=== PATIENT | female | born 1955 | race Caucasian/White ===

== ENCOUNTER → 2019-07-06 | Outpatient (CLI) | payer OTHER ==
[~2019-07-06] MED LIST: IBUPROFEN400 MG PO; IMITREX25 MG; PROTONIX40 MG PO; REGLAN10 MG PO
--- NOTE | 2019-07-06 10:08 | Diagnostic Imaging Report ---
CT of the chest, without contrast, 07/06/2019. History: "questionable area by the aorta arch on the left side of the lung" reported on prior exam. Left shoulder pain. Comparison: Chest x-ray 03/30/2015. Technique: Multidetector CT scanning of the chest was performed from the level of the apices to the upper abdomen without contrast. Coronal and sagittal multiplanar reformations were obtained. RADIATION DOSE: Total DLP: 477 mGy*cm Dose modulation, iterative reconstruction, and/or weight based adjustment of the mA/kV was utilized to reduce the radiation dose to as low as reasonably achievable. Discussion: Evaluation is limited without IV contrast. Chest: The heart, aorta, and pulmonary vessels are normal in size. A 2.7 cm oval hypodense lesion is present within the right thyroid lobe. There is no axillary or mediastinal adenopathy. The pleura and lungs are normal in appearance. There is no evidence of consolidation, mass, or pleural effusion. Limited evaluation of the upper abdomen shows normal adrenal glands. Cholecystectomy clips are present. There is diffuse low-density of the liver. Bones and soft tissues: No acute abnormality. Mild degenerative changes are present in the thoracic spine. IMPRESSION: 1. No pulmonary abnormality. Density described on prior chest x-ray is likely secondary to overlying first rib. 2. Right thyroid 2.7 cm nodule. Recommend further evaluation with ultrasound. 3. Diffuse fatty infiltration of the liver. Signed by: Jesus Hayes on 07/06/2019 10:06 AM
== END ==
LOC: CT 08:26
PROVIDERS: ATTEND Family Medicine
DX: R07.9 Chest pain, unspecified (principal)
CPT/HCPCS: 71250

== ENCOUNTER → 2020-07-27 | Outpatient (CLI) | payer MEDICARE ==
[~2020-07-27] MED LIST changes: +IOPAMIDOL 370 MG/ML 200 ML INFUS..BTL INJ ONE; +SODIUM CHLORIDE 0.9% 50ML 50 ML ONE
[2020-07-27 16:09] LABS: BLOOD UREA NITROGEN 17 mg/dL (7-26); BUN/CREATININE RATIO 19 (6-25); CREATININE, SERUM 0.89 mg/dL (0.57-1.11); EST GLOMERULAR FILTRATION RATE > 60 ML/MIN (60-)
== END ==
LOC: CT 15:23
PROVIDERS: ATTEND Family Medicine
DX: R10.12 Left upper quadrant pain (principal)
CPT/HCPCS: 36415; 74177; 82565; 84520; Q9967